=== PATIENT | male | born 1995 | race Caucasian/White ===

== ENCOUNTER 2018-12-22 20:44 | Emergency (ER) | payer SELFPAY ==
[~2018-12-22] VITALS: Ht 180.3 cm; Wt 91.0 kg
[2018-12-22] MEDS ORDERED: BACITRACIN ZINC OINT UDPKT TOP ONE (21:45)
[2018-12-22] MEDS ORDERED: IBUPROFEN 600MG TABLET PO ONE (21:45)
[2018-12-22] MEDS ORDERED: TETANUS, DIPHTHERIA, PERTUSSIS VAC/PF 0.5ML (>7YR OLD) IM ONE (21:45)
[2018-12-22] MEDS ORDERED: LIDOCAINE 1%/EPI 1:100,000 10 ML VIAL IJ ONE (21:45)
[2018-12-22] MEDS ORDERED: HYDROCODONE/ACETAMINOPHEN 5/325MG TABLET PO ONE (21:45)
[2018-12-22] MEDS ORDERED: LIDOCAINE HCL/PF 1% 10 MG/ML 5ML VIAL IJ ONE (21:45)
[2018-12-22] MEDS ORDERED: LIDOCAINE HCL/EPINEPHRINE 1%-EPI 1:100,000 20 ML VIAL INFIL NR (22:45)
[2018-12-22] MEDS: BACITRACIN 15GM TUBE TOP NR (22:45)
[2018-12-23] MEDS ORDERED: CEFAZOLIN 1000MG PREMIX 50 ML IV ONE (00:15)
[2018-12-23] MEDS ORDERED: SODIUM CHLORIDE 0.9% 1,000 ML IV ONE (00:22)
[2018-12-23] MEDS: BACITRACIN 15GM TUBE TOP NR (01:28)
[2018-12-23] MEDS ORDERED: MORPHINE SULFATE 4 MG/ML CPJ (NOT FOR IM USE) IV STA (02:17)
[2018-12-23] MEDS ORDERED: ONDANSETRON HCL 4MG/2ML INJ IV STA (02:17)
[2018-12-23 03:22] VITALS: BP 116/89
== END 2018-12-23 03:34 | disposition short-term general hospital (02) ==
LOC: ER 20:44
DX: S02.31XB Fracture of orbital floor, right side, initial encounter for open fracture (principal); S60.512A Abrasion of left hand, initial encounter; S60.511A Abrasion of right hand, initial encounter; Y04.0XXA Assault by unarmed brawl or fight, initial encounter; Y93.89 Activity, other specified; Y92.89 Other specified places as the place of occurrence of the external cause
CPT/HCPCS: 12013; 70450; 70480; 73130; 90715; 99285; J0690; J2270; J2405; J3490; J7030